=== PATIENT | male | born 1970 | race Caucasian/White ===

== ENCOUNTER 2020-12-27 22:09 | Emergency (ER) | payer SELFPAY ==
--- NOTE | 2020-12-28 01:29 | EDPHYS ---
Physician Documentation [facility] Name: Hamilton Montano Age: 50 yrs Sex: Male : 1970 Arrival Date: 12/27/2020 Time: 22:16 Bed Waiting Private MD: ED Physician Maximilian Gale HPI: 12/28 01:24 This 50 yrs old Male presents to ER via Ambulatory with complaints of cp Breathing Difficulty, covid exposure. 01:24 The patient has shortness of breath with light activity. Onset: The symptoms/episode cp began/occurred yesterday. Associated signs and symptoms: Pertinent positives: non-productive cough, Pertinent negatives: chest pain, diaphoresis, dizziness, fever. Historical: - Allergies: 12/27 22:52 No Known Allergies; kg - Home Meds: 22:52 None [Active]; kg - PMHx: 22:52 hypertension (resolved); kg - PSHx: 22:52 Right middle finger tendon sx; kg - Immunization history:: Adult Immunizations not up to date, Client reports having NOT received the Covid vaccine. - Social history:: Smoking status: Patient reports the use of cigarette tobacco products, smokes one-half pack cigarettes per day, Patient uses alcohol, on a daily basis. ROS: 12/28 01:24 Eyes: Negative for injury, pain, redness, and discharge. cp Constitutional: Negative for fever, poor PO intake. ENT: Negative for ear pain, sore throat, difficulty swallowing, difficulty handling secretions. Cardiovascular: Negative for chest pain, edema, palpitations. Respiratory: Positive for cough, with no reported sputum, shortness of breath, Negative for wheezing. Abdomen/GI: Negative for abdominal pain, nausea, vomiting, and diarrhea. Neuro: Negative for altered mental status, headache, syncope, weakness. All other systems are negative. Exam: 01:25 Head/Face: Normocephalic, atraumatic. cp 01:25 Constitutional: The patient appears in no acute distress, alert, awake, non-diaphoretic, non-toxic, well developed, well nourished. 01:25 Eyes: Periorbital structures: appear normal, Conjunctiva: normal, no exudate, no injection, Sclera: no appreciated abnormality, Lids and lashes: appear normal, bilaterally. 01:25 ENT: External ear(s): are unremarkable, Nose: is normal, Posterior pharynx: Airway: no evidence of obstruction, patent. 01:25 Chest/axilla: Inspection: normal. 01:25 Cardiovascular: Rate: normal, Rhythm: regular. 01:25 Respiratory: the patient does not display signs of respiratory distress, Respirations: normal, no use of accessory muscles, no retractions, labored breathing, is not present, Breath sounds: are clear throughout, no decreased breath sounds, no stridor, no wheezing. 01:25 Abdomen/GI: Exam negative for discomfort, distension, guarding, Inspection: abdomen appears normal. 01:25 Back: pain, is absent, ROM is normal. 01:25 Neuro: Orientation: to person, place \\T\\ time. Mentation: is normal. Vital Signs: 12/27 22:51 BP 143 / 93; Pulse 95; Resp 18; Temp 98.5; Pulse Ox 100% on R/A; Weight 70.31 kg (R); kg Height 5 ft. 9 in. (175.26 cm) (R); Pain 2/10; 12/28 01:46 BP 158 / 96; Pulse 85; Resp 16 S; Pulse Ox 100% on R/A; bb 12/27 22:51 Body Mass Index 22.89 (70.31 kg, 175.26 cm) kg MDM: 01:27 Differential diagnosis: Bronchitis CHF exacerbation, Chronic Obstructive Pulmonary cp Disease pneumonia, pulmonary edema, Pulmonary Embolism Sepsis. Data reviewed: vital signs, nurses notes, lab test result(s), and as a result, I will discharge patient. 01:28 Patient medically screened. cp 12/27 22:55 Order name: COVID-19 : Document "Date of Symptom Onset" if Symptomatic. kg 12/27 22:55 Order name: XRAY Chest Pa And Lat (2 Views) kg 12/28 01:12 Order name: SARS-COV-2 RT PCR; Complete Time: :27 EDMS 12/28 01:27 Interpretation: Results reviewed. cp Administered Medications: No medications were administered Disposition: 07:09 Co-signature as Attending Physician, Maximilian Gale MD. [email or web address] Disposition Summary: 12/28/20 01:28 Discharge Ordered Location: Home cp Problem: new cp Symptoms: are unchanged cp Condition: Stable cp Diagnosis - SARS-associated coronavirus as the cause of diseases classified elsewhere cp - Acute upper respiratory infection, unspecified cp Followup: cp - With: Private Physician - When: 2 - 3 days - Reason: Worsening of condition Discharge Instructions: - Discharge Summary Sheet cp - COVID-19 cp - COVID-19: What Your Test Results Mean - [facility] cp - Things to Know about the COVID-19 Pandemic - [facility] cp - 10 Things You Can Do to Manage Your COVID-19 Symptoms at Home - [facility] cp - COVID-19: Quarantine vs. Isolation - [facility] cp - Prevent the Spread of COVID-19 if You Are Sick - [facility] cp Forms: - Medication Reconciliation Form cp - Thank You Letter cp - Work release form bb - Antibiotic Education cp - Prescription Opioid Use cp Prescriptions: - albuterol sulfate 90 mcg/actuation Inhalation HFA aerosol inhaler - inhale 1 puff by INHALATION route every 4-6 hours; 1 Inhaler; Refills: 0, cp Product Selection Permitted - ivermectin 3 mg Oral tablet - take 5 tablet by ORAL route every other day; 10 tablet; Refills: 0, Product cp Selection Permitted - Tessalon Perles 100 mg Oral Capsule - take 2 capsule by ORAL route every 8 hours As needed; 30 capsule; Refills: 0, cp Product Selection Permitted - Zithromax Z-Uvaldo 250 mg Oral Tablet - take 1 tablet by ORAL route as directed for 5 days Day 1 - take two (2) tablets cp one time. Day 2, 3, 4 , 5 take one (1) tablet once daily.; 6 tablet; Refills: 0, Product Selection Permitted Signatures: Dispatcher [employer] EDMS Mike Pearson PA PA cp Maximilian Gale MD MD 7 Laurel Lu RN RN kg Corrections: (The following items were deleted from the chart) 12/27 23:07 22:56 CORONAVIRUS ordered. EDMA EDMS
--- NOTE | 2020-12-28 01:29 | ER ---
Nurse's Notes [facility] Name: Hamilton Montano Age: 50 yrs Sex: Male : 1970 Arrival Date: 12/27/2020 Time: 22:16 Bed Waiting Private MD: Diagnosis: SARS-associated coronavirus as the cause of diseases classified elsewhere;Acute upper respiratory infection, unspecified Presentation: 12/27 22:51 Chief complaint: Patient states: SOB, fatigue, nightmares x 1 day. Coronavirus screen: kg Client denies travel out of the [place] in the last 14 days. At this time, unable to obtain information related to travel outside the [place] Client presents with at least one sign or symptom that may indicate coronavirus-19. Standard/surgical mask placed on the client. Provider contacted for isolation considerations. Ebola Screen: Patient negative for fever greater than or equal to 101.5 degrees Fahrenheit, and additional compatible Ebola Virus Disease symptoms Patient denies exposure to infectious person. Patient denies travel to an Ebola-affected area in the 21 days before illness onset. Initial Sepsis Screen: Does the patient meet any 2 criteria? No. Patient's initial sepsis screen is negative. Does the patient have a suspected source of infection? No. Patient's initial sepsis screen is negative. Risk Assessment: Do you want to hurt yourself or someone else? Patient reports no desire to harm self or others. Onset of symptoms was December 26, 2020. 22:51 Method Of Arrival: Ambulatory kg 22:51 Acuity: DONY 4 kg Triage Assessment: 22:52 General: Appears in no apparent distress. Behavior is calm, cooperative, appropriate kg for age, quiet. Pain: Complains of pain in Neck Pain currently is 2 out of 10 on a pain scale. Quality of pain is described as aching. Respiratory: Reports shortness of breath at rest on exertion since 12/26 Onset: The symptoms/episode began/occurred suddenly, the patient has mild shortness of breath. Historical: - Allergies: 22:52 No Known Allergies; kg - Home Meds: 22:52 None [Active]; kg - PMHx: 22:52 hypertension (resolved); kg - PSHx: 22:52 Right middle finger tendon sx; kg - Immunization history:: Adult Immunizations not up to date, Client reports having NOT received the Covid vaccine. - Social history:: Smoking status: Patient reports the use of cigarette tobacco products, smokes one-half pack cigarettes per day, Patient uses alcohol, on a daily basis. Assessment: 12/28 01:45 General: Appears in no apparent distress. Behavior is cooperative, anxious. Neuro: bb Level of Consciousness is awake, alert, obeys commands, Oriented to person, place, time, situation. Cardiovascular: Capillary refill < 3 seconds Patient's skin is warm and dry. Respiratory: Airway is patent Respiratory effort is even, unlabored. GI: No signs and/or symptoms were reported involving the gastrointestinal system. Derm: Skin is pink, warm \T\ dry. Musculoskeletal: Circulation, motion, and sensation intact. pt discharged from the triage room pt verbalized understanding of and agrees to plan of care discharge instructions given pt ambulated with steady gait to exit. Vital Signs: 12/27 22:51 BP 143 / 93; Pulse 95; Resp 18; Temp 98.5; Pulse Ox 100% on R/A; Weight 70.31 kg (R); kg Height 5 ft. 9 in. (175.26 cm) (R); Pain 2/10; 12/28 01:46 BP 158 / 96; Pulse 85; Resp 16 S; Pulse Ox 100% on R/A; bb 12/27 22:51 Body Mass Index 22.89 (70.31 kg, 175.26 cm) kg ED Course: 12/27 22:16 Patient arrived in ED. cf2 22:52 Triage completed. kg 22:52 Arm band placed on left wrist. kg 23:36 XRAY Chest Pa And Lat (2 Views) In Process Unspecified. EDMS 12/28 01:13 ED provider notified of pt COVID positive. bb 01:24 Mike Pearson PA is PHCP. cp 01:24 Maximilian Gale MD is Attending Physician. cp 01:46 No provider procedures requiring assistance completed. Patient did not have IV access bb during this emergency room visit. Administered Medications: No medications were administered Outcome: 01:28 Discharge ordered by . cp 01:47 Discharged to home ambulatory. bb 01:47 Condition: stable 01:47 Discharge instructions given to patient, Instructed on discharge instructions, follow up and referral plans. medication usage, Demonstrated understanding of instructions, follow-up care, medications, Prescriptions given X 4. 01:47 Patient left the ED. bb Signatures: Dispatcher [employer] Concha Back, RN RN bb Mike Pearson PA PA cp [place], [place] [facility] Laurel Lu RN RN kg
[2020-12-28 01:51] VITALS: TEMP 98.5; O2SAT 100
[2020-12-28 01:52] VITALS: BP 158/96
--- NOTE | 2020-12-28 08:46 | RAD REPORT ---
EXAM DESCRIPTION: RAD - Chest Pa And Lat (2 Views) - 12/27/2020 11:36 pm CLINICAL HISTORY: SOB COMPARISON: None TECHNIQUE: Frontal and lateral views of the chest were obtained. FINDINGS: The lungs are clear. Heart size is normal and central vasculature is within normal limit s. No pleural effusion or pneumothorax seen. No acute bony finding noted. No aortic abnormality. IMPRESSION: No acute cardiopulmonary process.
== END 2020-12-28 01:47 | disposition home or self-care (01) ==
LOC: ER 22:09
DX: U07.1 COVID-19 (principal); J06.9 Acute upper respiratory infection, unspecified; F17.210 Nicotine dependence, cigarettes, uncomplicated
CPT/HCPCS: 71046; 99283; U0003